=== PATIENT | female | born 1975 | race Caucasian/White ===

== ENCOUNTER → 2016-03-31 | Outpatient (CLI) | payer BC ==
--- NOTE | 2016-03-31 10:16 | Diagnostic Imaging Report ---
PROCEDURE: CT neck soft tissue without contrast. TECHNIQUE: Multiple contiguous axial images were obtained through the neck without the use of intravenous contrast. INDICATION: 40-year-old female with right-sided neck pain and altered sensation. COMPARISONS: None available. FINDINGS: Bilateral submandibular and parotid glands are symmetric without surrounding inflammatory changes to indicate sialoadenitis or parotitis. No abnormal calculi, sublingual region to indicate sialolithiasis. There is no cervical lymphadenopathy. No evidence of mucosal-based lesion in the nasopharynx, oropharynx and hypopharynx. Larynx is normal without evidence of vocal cord paralysis. In the upper pole of the right thyroid, there is a 1.2 x 0.9 x 1.3 cm well-circumscribed hypodense nodule, which is incompletely evaluated. The remainder of the thyroid is normal. Visualized orbits are normal. Paranasal sinuses are clear. Mastoid air cells are well aerated. Posterior fossa is unremarkable. No concerning abnormality in the cervical spine. IMPRESSION: 1. There is a 1.3 cm well-circumscribed nodule in the upper pole of the right thyroid, which is indeterminate by CT. This most likely represents a benign hyperplastic nodule, although ultrasound of this nodule is recommended for complete characterization. 2. No evidence of sialoadenitis or parotitis. 3. No cervical lymphadenopathy. Dictated by: Dictated on workstation # [id number]
== END ==
LOC: RAD 09:38
PROVIDERS: ATTEND Family Medicine
DX: M54.2 Cervicalgia (principal); R13.10 Dysphagia, unspecified
CPT/HCPCS: 70490

== ENCOUNTER → 2016-04-12 | Outpatient (CLI) | payer BC ==
--- NOTE | 2016-04-12 13:55 | Diagnostic Imaging Report ---
PROCEDURE: US Thyroid. TECHNIQUE: Multiple real-time grayscale images were obtained of the thyroid in various projections. INDICATION: Thyroid nodule. FINDINGS: The right lobe of the thyroid measures 5.1 x 2.2 x 1.7 cm. The left lobe measures 5.0 x 1.9 x 1.4 cm. In the right lobe, there is a 12 x 13 x 8 mm nodule in the upper pole. There is a 6 x 4 x 5 mm nodule in the inferior pole of the right lobe. In the left lobe, there is a 7 x 9 x 6 mm nodule in the upper pole and some tiny nodules in the lower pole. IMPRESSION: There are multiple bilateral thyroid nodules, consistent with a multinodular goiter. None of the individual nodules have any suspicious features. Dictated by: Dictated on workstation # [id number]
== END ==
LOC: RAD 12:01
PROVIDERS: ATTEND Family Medicine
DX: E04.1 Nontoxic single thyroid nodule (principal)
CPT/HCPCS: 76536

== ENCOUNTER → 2019-11-13 | Outpatient (CLI) | payer BC, OTHER | LOC: RAD 14:30 | PROVIDERS: ATTEND Obstetrics & Gynecology | DX: Z12.31 Encounter for screening mammogram for malignant neoplasm of breast (principal) | CPT/HCPCS: 77063; 77067 ==

== ENCOUNTER → 2021-05-18 | Outpatient (CLI) | payer OTHER ==
--- NOTE | 2021-05-18 11:50 | Diagnostic Imaging Report ---
INDICATION: Routine screening. Comparison is made with prior mammogram 11/13/2019 and 11/13/2014. 2-D and 3-D bilateral screening mammography was performed with CAD. Scattered fibroglandular densities are identified bilaterally. The overall parenchymal pattern is stable. No mass or malignant-appearing microcalcifications are seen. Axillae are unremarkable. IMPRESSION: No mammographic features suspicious for malignancy are identified. ACR BI-RADS Category 1: Negative. Result letter will be mailed to the patient. Note: At least 10% of breast cancer is not imaged by mammography. BI-RADS Category 1 Dictated by: Dictated on workstation # [id number]
== END ==
LOC: RAD 08:54
PROVIDERS: ATTEND Obstetrics & Gynecology
DX: Z12.31 Encounter for screening mammogram for malignant neoplasm of breast (principal)
CPT/HCPCS: 77063; 77067